=== PATIENT | female | born 1960 ===

== ENCOUNTER 2017-08-04 20:38 | Emergency (ER) | payer OTHER, BC ==
[2017-08-04 21:05] VITALS: BP 148/73; PULSE 65; RESP 18; TEMP 97.8; O2SAT 100
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
== END 2017-08-04 21:52 | disposition home or self-care (01) ==
LOC: H.ER 20:38
DX: S39.012A Strain of muscle, fascia and tendon of lower back, initial encounter (principal); S16.1XXA Strain of muscle, fascia and tendon at neck level, initial encounter; V43.52XA Car driver injured in collision with other type car in traffic accident, initial encounter; Y92.410 Unspecified street and highway as the place of occurrence of the external cause
CPT/HCPCS: 96372; 99284; J1885